=== PATIENT | male | born 1975 | race Caucasian/White ===

== ENCOUNTER 2016-11-06 16:02 | Emergency (ER) | payer OTHER ==
[~2016-11-06] VITALS: Ht 182.9 cm; Wt 99.8 kg
[~2016-11-06 16:02] MED LIST: ATIVAN0.5 M1 PO; LIORESAL 10MG T10 MG PO; MEDROL4 M2 PO; MOTRIN 600 MG600 MG PO; TRAMADOL50 MG PO
[2016-11-06 16:27] LABS: ABSOLUTE BASOPHIL COUNT 0 /CUMM (0.0-0.2); ABSOLUTE EOSINOPHIL COUNT 0.1 /CUMM (0.0-0.7); ABSOLUTE LYMPH COUNT 1.8 /CUMM (1.2-3.4); ABSOLUTE MONOCYTE COUNT 0.6 /CUMM (0.10-0.60); BASOPHIL % 0.5 % (0.0-2.0); EOSINOPHIL % 1.2 % (0-5); GRANULOCYTE % 66.2 % (42.2-75.2); HEMATOCRIT 45.8 % (42-52); MEAN CORPUSCULAR HGB CONC 32.5 G/DL (33.0-37.0); MEAN CORPUSCULAR VOLUME 92.4 FL (80.0-94.0); MEAN PLATELET VOLUME 9.7 FL (7.4-10.4); PLATELET COUNT 235 /CUMM (130-400); RBC DISTRIBUTION WIDTH 12.7 % (11.5-14.5); RED BLOOD CELL CT 4.96 /CUMM (4.70-6.10); WHITE BLOOD CELL COUNT 7.5 /CUMM (4.8-10.8)
--- NOTE | 2016-11-06 19:37 | ED GI/GU/ABDOMINAL COMPLAINT ---
History of Present Illness General Chief Complaint: General Adult Stated Complaint: RT RIB PAIN X 1WEEK PT HAS MULTIPLE COMPLAINTS Source: patient Exam Limitations: no limitations Vital Signs & Intake/Output Vital Signs & Intake/Output Vital Signs Date Time Temp Pulse Resp B/P Pulse O2 O2 Flow FiO2 Ox Delivery Rate 11/07 2135 97.8 75 18 155/83 96 11/06 1938 98 Room Air 11/06 1607 98.3 99 16 148/85 98 Room Air Allergies Coded Allergies: NO KNOWN ALLERGIES (01/23/15) Triage Note: PT STATES HE IS HAVING PAIN IN HIS ABD STATES HE HAS IBS AND DIVERTICULITIS. PT STATES HE HAS A COUGH AND HAS A SWOLLEN GLAND IN HIS RIGHT NECK. PT STATES HE CALLED HIS DRAshley AND THEY TOLD HIM HE NEEDED A CT SCAN TO CHECK HIS LIVER. Triage Nurses Notes Reviewed? yes Onset: Abrupt Duration: week(s): (2), constant, continues in ED Timing: recent history Quality/Severity: moderate, sharpness, severe Location: right upper quadrant (/right rib) Radiation: no radiation (/were) Activities at Onset: none No Modifying Factors: none HPI: 41-year-old male that had a coloscopy done 2 weeks ago and was diagnosed with diverticulosis as well as IBS comes in [place] 0 complaints of right upper abdominal/right sided rib pain. Patient reports that the pain has been there for the last couple weeks. Patient reports he is a little bit of associated cough. He denies any shortness of breath. He reports that he feels like the pain is underneath his right rib cage. Denies any vomiting changes in bowel movement. Patient had initially been seeing the stna for left lower abdominal pain. Denies any urinary symptoms. Denies any chest pain. (BRIDGETT YEN) Past History Travel History Traveled to [place] past 21 day No Medical History Any Pertinent Medical History? see below for history Neurological: NONE EENT: NONE Cardiovascular: NONE Respiratory: NONE Gastrointestinal: DIVERTICULOSIS Hepatic: NONE Renal: NONE Musculoskeletal: NONE Psychiatric: NONE Endocrine: NONE Surgical History Surgical History: non-contributory Psychosocial History What is your primary language Greek Tobacco Use: Never used ETOH Use: occasional use Illicit Drug Use: denies illicit drug use Family History Hx Contributory? No (BRIDGETT YEN) Review of Systems Review of Systems Constitutional: Reports: no symptoms. EENTM: Reports: no symptoms. Respiratory: Reports: see HPI. Cardiovascular: Reports: no symptoms. GI: Reports: see HPI. Genitourinary: Reports: no symptoms. Musculoskeletal: Reports: see HPI. Skin: Reports: no symptoms. Neurological/Psychological: Reports: no symptoms. Hematologic/Endocrine: Reports: no symptoms. Immunologic/Allergic: Reports: no symptoms. All Other Systems: Reviewed and Negative (BRIDGETT YEN) Physical Exam Physical Exam General Appearance: well developed/nourished, no apparent distress, alert Head: atraumatic, normal appearance Eyes: Bilateral: normal appearance, EOMI. Ears, Nose, Throat, Mouth: hearing grossly normal, moist mucous membrane Neck: normal inspection, full range of motion Respiratory: normal breath sounds, no respiratory distress Cardiovascular: regular rate/rhythm Gastrointestinal: normal bowel sounds, soft, non-tender Back: normal inspection Extremities: normal range of motion Neurologic/Psych: awake, alert, oriented x 3, normal gait, normal mood/affect Skin: intact, normal color Core Measures ACS in differential dx? No Severe Sepsis Present: No Septic Shock Present: No (BRIDGETT YEN) Progress Differential Diagnosis: AMI, biliary colic, bowel obstruction, cholecystitis, diverticulitis, gastritis, hepatitis, pancreatitis, PUD/GERD, perforated viscous , pyelonephritis, ureterolithiasis, UTI/pyelo, PE, pneumonia Plan of Care: Orders Procedure Date/time Status Add-on Test (ER Only) 11/06 1914 Active URINALYSIS 11/06 191 Complete LIPASE 11/06 161 Complete AMYLASE 11/06 161 Complete COMPREHENSIVE METABOLIC PANEL 11/06 1608 Complete CBC WITHOUT DIFFERENTIAL 11/06 1608 Complete Laboratory Tests 11/06/16 2100: Urine Color YEL, Urine Clarity CLEAR, Urine pH 6.0, Ur Specific [place] 1.025, Urine Protein NEG, Urine Ketones TRACE H, Urine Nitrite NEG, Urine Bilirubin NEG, Urine Urobilinogen 0.2, Ur Leukocyte Esterase NEG, Ur Microscopic EXAM NOT REQUIRED, Urine Hemoglobin NEG, Urine Glucose NEG 11/06/16 1613: Anion Gap 12, Estimated GFR > 60, BUN/Creatinine Ratio 17.8, Glucose 96, Calcium 10.0, Total Bilirubin 0.9, AST 25, ALT 51, Alkaline Phosphatase 58, Total Protein 7.9, Albumin 4.6, Globulin 3.3, Albumin/Globulin Ratio 1.4, Amylase 35, Lipase 82, CBC w Diff NO MAN DIFF REQ, RBC 4.96, MCV 92.4, MCH 30.0, RDW 12.7, MPV 9.7, Gran % 66.2, Lymphocytes % 24.0, Monocytes % 8.1, Eosinophils % 1.2, Basophils % 0.5, Absolute Granulocytes 5.0, Absolute Lymphocytes 1.8, Absolute Monocytes 0.6, Absolute Eosinophils 0.1, Absolute Basophils 0, PUBS MCHC 32.5 L Diagnostic Imaging: Viewed by Me: Radiology Read, CT Scan. Discussed w/RAD: Radiology Read, CT Scan. Radiology Impression: SERVICE DATE: 11/06/16 EXAM TYPE: RAD - XRY-RIBS UNILATERAL-RIGHT EXAMINATION: XR RIBS, RIGHT CLINICAL INFORMATION: 41-year-old man with pain. COMPARISON: None TECHNIQUE: Frontal view of the chest along with 3 dedicated views of the right ribs were obtained. FINDINGS: Lungs are clear. No consolidation, pneumothorax, or pleural effusion. The cardiomediastinal silhouette and pulmonary vasculature are normal. Osseous structures are unremarkable. Ribs are intact. No fractures are identified. IMPRESSION: No evidence of acute cardiothoracic injury or a displaced right sided rib fracture. DICTATED BY: BIANCA EDEN MD DATE/TIME DICTATED:11/06/162017 CRESTER: IAN DATE/TIME TRANSCRIBED:11/06/162017, SERVICE DATE: 11/06/16 EXAM TYPE: CAT - CT ABD & PELVIS W/O IV CONTRAS EXAMINATION: CT ABDOMEN AND PELVIS WITHOUT CONTRAST CLINICAL INFORMATION: 41-year-old man with right upper quadrant pain. COMPARISON: None TECHNIQUE: Multidetector volumetric imaging was performed from the superior aspect of the liver through the pubic symphysis. Sagittal and coronal reformatted images were obtained on the technologist's workstation. DLP: 446 mGy-cm FINDINGS: The lung bases are clear. The liver, spleen, pancreas, adrenals, kidneys, and gallbladder are normal in their noncontrast appearance. Nondilated loops of large and small bowel are also unremarkable. The appendix and terminal ileum are not inflamed. The prostate, seminal vesicles, and bladder are normal in appearance. IMPRESSION: No acute intra-abdominal process is seen to explain the patient's symptoms. DICTATED BY: BIANCA EDEN MD DATE/TIME DICTATED:11/06/161956 CRESTER:IAN DATE/TIME TRANSCRIBED:11/06/161956 Initial ED EKG: none Comments: 11/06/2016 11:11:02 PM Patient clinically looks well. Nontoxic appearing. Pain seems to be more consistent with abdominal versus rib/lung pain. At this time there is no suspicion for pulmonary embolism. Patient has no left anterior chest pain. There is no concern for any type of atypical cardiac presentation at this time. Overall workup has been benign. Patient instructed to follow up with his primary care doctor to go overall results of today's visit with him as well as his stna. Patient reevaluated multiple times at bedside and continued to remain in no apparent distress. Patient understands and agrees with plan of care. case discussed with dr dominguez. (BRIDGETT YEN) Departure Departure Disposition: HOME OR SELF CARE Condition: Stable Clinical Impression Primary Impression: Abdominal pain Referrals: AVI TOBAR DO (PCP/Family) Additional Instructions: Follow-up with your primary care doctor. Follow-up with her gastrologist. Return to emergency room if any concerns worsening symptoms. Go over results of today's visit with your primary care doctor. Departure Forms: Customer Survey General Discharge Information (BRIDGETT YEN) PA/GEM SETTER Co-Sign Statement Statement: ED Attending supervision documentation- [] I saw and evaluated the patient. I have also reviewed all the pertinent lab results and diagnostic results. I agree with the findings and the plan of care as documented in the PA's/GEM SETTER's documentation. [X] I have reviewed the ED Record and agree with the PA's/GEM SETTER's documentation. [] Additions or exceptions (if any) to the PAs/GEM SETTER's note and plan are summarized below: [] (DARIUSZ SMITH,JANNY Delgado)
--- NOTE | 2016-11-06 20:03 | CT SCAN REPORT ---
EXAMINATION: CT ABDOMEN AND PELVIS WITHOUT CONTRAST CLINICAL INFORMATION: 41-year-old man with right upper quadrant pain. COMPARISON: None TECHNIQUE: Multidetector volumetric imaging was performed from the superior aspect of the liver through the pubic symphysis. Sagittal and coronal reformatted images were obtained on the technologist's workstation. DLP: 446 mGy-cm FINDINGS: The lung bases are clear. The liver, spleen, pancreas, adrenals, kidneys, and gallbladder are normal in their noncontrast appearance. Nondilated loops of large and small bowel are also unremarkable. The appendix and terminal ileum are not inflamed. The prostate, seminal vesicles, and bladder are normal in appearance. IMPRESSION: No acute intra-abdominal process is seen to explain the patient's symptoms.
--- NOTE | 2016-11-06 20:23 | RADIOLOGY REPORT ---
EXAMINATION: XR RIBS, RIGHT CLINICAL INFORMATION: 41-year-old man with pain. COMPARISON: None TECHNIQUE: Frontal view of the chest along with 3 dedicated views of the right ribs were obtained. FINDINGS: Lungs are clear. No consolidation, pneumothorax, or pleural effusion. The cardiomediastinal silhouette and pulmonary vasculature are normal. Osseous structures are unremarkable. Ribs are intact. No fractures are identified. IMPRESSION: No evidence of acute cardiothoracic injury or a displaced right sided rib fracture.
[2016-11-06 21:36] VITALS: BP 155/83
== END 2016-11-06 21:50 ==
LOC: ERH 16:02
PROVIDERS: Emergency Medicine
DX: R10.11 Right upper quadrant pain (principal)
CPT/HCPCS: 71100-RT; 74176; 81003

== ENCOUNTER 2017-10-19 19:57 | Emergency (ER) | payer OTHER ==
[~2017-10-19] VITALS: Ht 193 cm; Wt 104.3 kg
[~2017-10-19 19:57] MED LIST changes: +MOBIC15 M1 PO
--- NOTE | 2017-10-19 20:21 | ED CARDIAC/CP/PALPITATIONS ---
History of Present Illness General Chief Complaint: Chest Pain Stated Complaint: CHEST PAIN, SOB, FEVER Source: patient Exam Limitations: no limitations Vital Signs & Intake/Output Vital Signs & Intake/Output Vital Signs Date Time Temp Pulse Resp B/P B/P Pulse O2 O2 Flow FiO2 Mean Ox Delivery Rate 10/20 0138 97 Room Air 10/20 0123 96.3 77 18 135/59 95 Room Air 10/19 2208 98.2 73 20 135/63 97 Room Air 10/20 2003 98.0 97 20 156/89 98 Room Air ED Intake and Output 10/20 0000 10/19 1200 Intake Total Output Total Balance Patient 230 lb Weight Allergies Coded Allergies: NO KNOWN ALLERGIES (01/23/15) Reconcile Medications Meloxicam (Mobic) 15 MG TABLET 1 TAB PO DAILY PRN PAIN/INFLAMMATION Triage Note: PT FROM URGENT CARE. PT WENT THERE FOR C/O CHEST SORENESS. 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 PT REPORTS PAIN WITH DEEP INSIPRATION. PT STATES HE HAD AN EKG THAT WAS NORMAL. PT REPORTS DIZZINESS WITH THIS SORENESS. Triage Nurses Notes Reviewed? yes Onset: Abrupt Duration: intermittent Timing: recent history Location: substernal Radiation: no radiation HPI: Patient is a 42-year-old male with an unremarkable past medical history presents emergency room with concerns of a 7-8 day history of intermittent chest wall pain where he states that the police and and palpation of this substernal left chest region has made his symptoms worse. Patient was evaluated in urgent care facility 3 days ago received EKG and chest x-ray with unremarkable findings. Patient states that today symptoms are worse and describes shortness of breath and when he lied down in a supine position he stated that the chest pain worsens. Patient still complains of debilitation and palpation of pain localized to his left anterior chest wall Denies any fever or chills arm pain and jaw pain nausea vomiting leg swelling or hemoptysis diaphoresis. Denies any smoking or illicit drug or alcohol use noted that in June 2017 patient did present to the emergency room with similar complaints where I evaluated patient and safely he was discharged. Patient did not follow-up with a primary care doctor. (Zulema HENSON,) Past History Travel History Traveled to [place] past 21 day No Medical History Any Pertinent Medical History? see below for history Neurological: NONE EENT: NONE Cardiovascular: NONE Respiratory: NONE Gastrointestinal: DIVERTICULOSIS Hepatic: NONE Renal: NONE Musculoskeletal: CHEST WALL PAIN Psychiatric: NONE Endocrine: NONE Blood Disorders: NONE Cancer(s): NONE Surgical History Surgical History: non-contributory Psychosocial History What is your primary language Dominican Tobacco Use: Never used ETOH Use: occasional use Illicit Drug Use: denies illicit drug use Family History Hx Contributory? No (James Aldana) Review of Systems Review of Systems Constitutional: Reports: no symptoms. EENTM: Reports: no symptoms. Respiratory: Reports: see HPI. Cardiovascular: Reports: see HPI. GI: Reports: no symptoms. Genitourinary: Reports: no symptoms. Musculoskeletal: Reports: no symptoms. Skin: Reports: no symptoms. Neurological/Psychological: Reports: no symptoms. Hematologic/Endocrine: Reports: no symptoms. Immunologic/Allergic: Reports: no symptoms. All Other Systems: Reviewed and Negative (James Aldana) Physical Exam Physical Exam General Appearance: no apparent distress, alert, comfortable Head: atraumatic Eyes: Bilateral: normal appearance. Ears, Nose, Throat: normal pharynx, normal ENT inspection, hearing grossly normal Neck: normal inspection Respiratory: normal breath sounds Cardiovascular: regular rate/rhythm Peripheral Pulses: 2+ radial (R) Gastrointestinal: normal bowel sounds, soft, non-tender Back: normal inspection Neurologic/Psych: no motor/sensory deficits, awake, alert, oriented x 3, normal gait, normal mood/affect Skin: intact, normal color, warm/dry Core Measures ACS in differential dx? Yes CVA/TIA Diagnosis No Sepsis Present: No Sepsis Focused Exam Completed? No (James Aldana) Progress Differential Diagnosis: AMI, aortic dissection, atrial fibrillation, cholecystitis, CHF/pulm edema, costochondritis, hyperkalemia, hypovolemia, hyperthyroid, hyperventilation, intracranial hemorrhage, musculoskeletal pain, myocarditis, pancreatitis, pericarditis, pneumonia, pneumothorax, PSVT, pulmonary embolism, PUD/GERD, PVCs/PACs, respiratory failure, rib fracture, sepsis, unstable angina, V-fib/V-Tach, WPW syndrome Plan of Care: Orders Procedure Date/time Status TROPONIN LEVEL 10/205 Complete EKG 10/20 44 Active Telemetry/Developer Programmer 10/19 2038 Active TROPONIN LEVEL 10/19 2038 Complete D-DIMER 10/19 2038 Complete COMPREHENSIVE METABOLIC PANEL 10/19 2038 Complete CBC WITHOUT DIFFERENTIAL 10/19 2038 Complete EKG 10/20 2007 Active Laboratory Tests 10/20/17 0043: Troponin I < 0.01 10/19/17 2100: Anion Gap 14, Estimated GFR > 60, BUN/Creatinine Ratio 20.9, Glucose 102 H, Calcium 9.3, Total Bilirubin 0.3, AST 21, ALT 42, Alkaline Phosphatase 50, Troponin I < 0.01, Total Protein 7.1, Albumin 4.1, Globulin 3.0, Albumin/ Globulin Ratio 1.4, D-Dimer High Sensitivty < 200, CBC w Diff NO MAN DIFF REQ, RBC 4.95, MCV 93.2, MCH 30.1, MCHC 32.3 L, RDW 12.6, MPV 9.2, Gran % 67.5, Lymphocytes % 22.5, Monocytes % 8.3, Eosinophils % 1.3, Basophils % 0.4, Absolute Granulocytes 4.5, Absolute Lymphocytes 1.5, Absolute Monocytes 0.6, Absolute Eosinophils 0.1, Absolute Basophils 0 Patient's and his EKG was unremarkable threat monitoring analyst placed The plan will be to PROCEED WITH second set of troponin/EKG after 4 hours Patient's initial troponin was unremarkable d-dimer negative Discussed handoff with Dr. Selby with second set troponin and EKG are pending Diagnostic Imaging: Viewed by Me: Radiology Read. CXR Impression: no acute abnormality, no infiltrates Initial ED EKG: normal p-waves, normal QRS complex, normal sinus rhythm, 72 BPM, NSR Hand-Off Endorsed To: Silvestre Selby MD Endorsed Time: 50 Pending: EKG, labs Comments: PATIENT: STEVO GRAY PRESENT AGE: 42 PATIENT ACCOUNT NO: [id number] : 75 LOCATION: [facility] ORDERING PHYSICIAN: James HENSON SERVICE DATE: 10/19/17 EXAM TYPE: RAD - XRY-CHEST XRAY, TWO VIEWS EXAMINATION: XR CHEST CLINICAL INFORMATION: Chest pain COMPARISON: 07/01/2017 TECHNIQUE: 2 views of the chest were obtained. FINDINGS: The cardiomediastinal silhouette and pulmonary vascularity are normal. No focal pulmonary consolidation. No pleural effusion. No pneumothorax. The visualized bones are unremarkable. IMPRESSION: No acute pulmonary findings. 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 Stevo has been experiencing a chest discomfort over the past week or so. He describes it as an aching pain that gets worse with deep inspiration and palpation. He was evaluated twice in a walk-in clinic, the second time he was referred to the emergency department for reevaluation. He has no apparent cardiac risk factors at this time. His chest pain presentation is atypical and very likely reflects a chest wall pain such as costochondritis. He does have a rather physical job. He was prescribed ibuprofen after a previous walk-in clinic visit but has taken this only sporadically. Although there appears to be no indication at this time of acute GA unstable angina or pericarditis, I have referred Stevo to Dr. Deluca for more complete evaluation of his cardiac status including investigation of the possibility of valve disease such as mitral valve prolapse. (Sola SMITH,Silvestre Bruenr) Departure Departure Disposition: HOME OR SELF CARE Condition: Stable Clinical Impression Primary Impression: Chest pain Referrals: Sandrine SMITH PHD,Arya Godinez DO (PCP/Family) Departure Forms: Customer Survey General Discharge Information (James Aldana) Departure Additional Instructions: Contact Dr. Deluca, produce laborer, tomorrow and arrange for follow-up appointment during the week. Try to cut back on your physical activity to allow your chest wall to rest. Take the ibuprofen as previously prescribed around the clock. Return if any concerns or sudden worsening. Thank you for choosing the [facility] Emergency Department for your care. It was a pleasure to serve you today. Silvestre Selby M.D. [facility] (Sola SMITH,Silvestre Bruner) Critical Care Note Critical Care Note Critical Care Time: non-applicable (Zulema HENSON,)
[2017-10-19 21:05] LABS: ABSOLUTE BASOPHIL COUNT 0 /CUMM (0.0-0.2); ABSOLUTE EOSINOPHIL COUNT 0.1 /CUMM (0.0-0.7); ABSOLUTE GRANULOCYTE CT 4.5 /CUMM (1.4-6.5); ABSOLUTE LYMPH COUNT 1.5 /CUMM (1.2-3.4); ABSOLUTE MONOCYTE COUNT 0.6 /CUMM (0.10-0.60); BASOPHIL % 0.4 % (0.0-2.0); EOSINOPHIL % 1.3 % (0-5); GRANULOCYTE % 67.5 % (42.2-75.2); HEMATOCRIT 46.2 % (42-52); MEAN CORPUSCULAR HGB 30.1 PG (27.0-31.0); MEAN CORPUSCULAR HGB CONC 32.3 G/DL (33.0-37.0); MEAN CORPUSCULAR VOLUME 93.2 FL (80.0-94.0); MEAN PLATELET VOLUME 9.2 FL (7.4-10.4); PLATELET COUNT 247 /CUMM (130-400); RBC DISTRIBUTION WIDTH 12.6 % (11.5-14.5); RED BLOOD CELL CT 4.95 /CUMM (4.70-6.10); WHITE BLOOD CELL COUNT 6.6 /CUMM (4.8-10.8)
--- NOTE | 2017-10-19 22:59 | RADIOLOGY REPORT ---
EXAMINATION: XR CHEST CLINICAL INFORMATION: Chest pain COMPARISON: 07/01/2017 TECHNIQUE: 2 views of the chest were obtained. FINDINGS: The cardiomediastinal silhouette and pulmonary vascularity are normal. No focal pulmonary consolidation. No pleural effusion. No pneumothorax. The visualized bones are unremarkable. IMPRESSION: No acute pulmonary findings.
[2017-10-20 01:23] VITALS: BP 135/59
== END 2017-10-20 01:57 ==
LOC: ERH 19:57
PROVIDERS: Physician Assistant
DX: R07.9 Chest pain, unspecified (principal)
CPT/HCPCS: 71046; 93005; 93010

== ENCOUNTER 2017-10-28 18:10 | Emergency (ER) | payer OTHER ==
[~2017-10-28] VITALS: Ht 182.9 cm; Wt 104.3 kg
--- NOTE | 2017-10-28 18:40 | CT SCAN REPORT ---
EXAMINATION: CT HEAD WITHOUT CONTRAST CLINICAL INFORMATION: 42-year-old male patient with right-sided headache behind the eye associated with blurry vision. COMPARISON: CT the brain done 01/30/2016. (Negative). TECHNIQUE: Contiguous axial imaging was performed from the skull base to vertex without intravenous administration of contrast. DLP: 615 mGy-cm FINDINGS: There is no evidence of acute intracranial hemorrhage or territorial infarction. No abnormal mass effect or midline shift is seen. Leung to white matter differentiation is well preserved. No extra-axial fluid collections are identified. The ventricles are normal in size. There is no abnormal attenuation within the brain parenchyma. The osseous structures and soft tissues are normal. Mastoid air cells are normal. There are signs of bilateral maxillary sinusitis and right-sided ethmoid sinusitis. The frontal sinus air cells are clear. There is mild callosal thickening of the left sphenoid sinus air cell. IMPRESSION: No acute intracranial pathology. Evidence of paranasal sinus disease.
--- NOTE | 2017-10-28 20:03 | ED HEADACHE COMPLAINT ---
History of Present Illness General Chief Complaint: Dizziness Stated Complaint: HEAD PAIN AND DIZZINESS X 3DAYS Source: patient Exam Limitations: no limitations Vital Signs & Intake/Output Vital Signs & Intake/Output Vital Signs Date Time Temp Pulse Resp B/P B/P Pulse O2 O2 Flow FiO2 Mean Ox Delivery Rate 10/28 2004 82 20 143/70 98 Room Air 10/28 1814 97.7 84 18 148/89 100 Room Air Allergies Coded Allergies: NO KNOWN ALLERGIES (01/23/15) Reconcile Medications Meloxicam (Mobic) 15 MG TABLET 1 TAB PO DAILY PRN PAIN/INFLAMMATION Triage Note: PT COMPLAINS OF R SIDE FOREHEAD PAIN CONSTANT 3 DAYS AND INTERMITTANT BLURRED VISION, DENIES N/V/D, DENIES CP/SOB. PT HAS NOT TAKEN ANYTHING FOR THE PAIN. PT HAS CHRONIC BLURRED VISION THATHE IS BEING WORKED UP CARDIAC RIGHT NOW. PT VERY ANXIOUS AT TRIAGE Triage Nurses Notes Reviewed? yes HPI: Patient presents for evaluation of a right-sided headache that began about 3 days ago, gradual in onset. Patient is describing an intermittent pressure like sensation just over the right eye. In addition he states he's had blurred vision off and on for many years but feels that it's not quite blurred vision is just that he needs to shake his head to sort of clear his vision from time to time. He was evaluated in the emergency department for similar symptoms minus the headache roughly 1 week ago. He has followed up with a frozen food selector and had a stress test done today. He has yet to see his primary care physician in follow-up since his last emergency department visit. Outside of the above the patient is also complaining of some mild nasal congestion but otherwise denies chest pain or shortness of breath. Family history is pertinent for aneurysms in both his grandmother and aunt the patient states that he himself has never been evaluated for this. Uses occasional alcohol but denies any drug use or tobacco smoking. Past History Travel History Traveled to [place] past 21 day No Medical History Any Pertinent Medical History? see below for history Neurological: NONE EENT: NONE Cardiovascular: NONE Respiratory: NONE Gastrointestinal: DIVERTICULOSIS Hepatic: NONE Renal: NONE Musculoskeletal: CHEST WALL PAIN Psychiatric: NONE Endocrine: NONE Blood Disorders: NONE Cancer(s): NONE Surgical History Surgical History: non-contributory Psychosocial History What is your primary language Occitan Tobacco Use: Never used ETOH Use: denies use Illicit Drug Use: denies illicit drug use Family History Hx Contributory? No Review of Systems Review of Systems Constitutional: Reports: no symptoms. Eyes: Reports: no symptoms. Ears, Nose, Throat, Mouth: Reports: no symptoms. Respiratory: Reports: no symptoms. Cardiovascular: Reports: no symptoms. Gastrointestinal/Abdominal: Reports: no symptoms. Genitourinary: Reports: no symptoms. Musculoskeletal: Reports: no symptoms. Skin: Reports: no symptoms. Neurological/Psychological: Reports: see HPI. Hematologic/Endocrine: Reports: no symptoms. Endocrine: Reports: no symptoms. Immunologic/Allergic: Reports: no symptoms. All Other Systems: Reviewed and Negative Physical Exam Physical Exam Cranial Nerves: SEE BELOW Comments: Gen.: Well-nourished, well-developed, no acute respiratory distress. Head: Normocephalic, atraumatic. Face: Nontender to percussion Eyes: Normal inspection bilaterally, PERRLA, EOMI Ears: Normal inspection bilaterally Nose: Normal inspection Throat/mouth : Moist mucosa Neck: Supple, full range of motion, no goiter, equal carotid pulses, no carotid bruits Heart: Regular rate and rhythm, no murmurs rubs or gallops Lungs: Clear to auscultation bilaterally with normal air entry Chest: Nontender Back: Normal range of motion Abdomen: Soft, nontender, nondistended, normal bowel sounds Extremities: Normal range of motion grossly, equal radial pulses, no cyanosis clubbing or edema Neurologic: Cranial nerves grossly intact, speech is clear Skin: warm and dry Psychiatric: Calm, cooperative, no apparent delusions or hallucinations Core Measures Sepsis Present: No Sepsis Focused Exam Completed? No Progress Differential Diagnosis: IC mass/tumor, intracranial Hem., musculoskeletal pain, sinusitis, tension AMAYA, temporal arteritis, TMJ syndrome, viral cephalgia, Aneurysm Plan of Care: Orders Procedure Date/time Status PROTHROMBIN TIME 10/28 2022 Complete BASIC METABOLIC PANEL 10/28 2022 Complete Laboratory Tests 10/28/172034: PT 12.8 H, INR 1.17 10/28/172020: BUN Cancelled, Creatinine Cancelled, BUN/Creatinine Ratio Cancelled 10/28/172019: Anion Gap 15, Estimated GFR > 60, BUN/Creatinine Ratio 18.9, Glucose 99, Calcium 9.6 Diagnostic Imaging: Discussed w/RAD: CT Scan. Radiology Impression: PATIENT: STEVO GRAY PRESENT AGE: 42 PATIENT ACCOUNT NO: [id number] : 75 LOCATION: [facility] ORDERING PHYSICIAN: Jimmy HENSON SERVICE DATE: 10/28/17 EXAM TYPE: CAT - CT HEAD WO IV CONTRAST EXAMINATION: CT HEAD WITHOUT CONTRAST CLINICAL INFORMATION: 42-year-old male patient with right-sided headache behind the eye associated with blurry vision. COMPARISON: CT the brain done 01/30/2016. ( Negative). TECHNIQUE: Contiguous axial imaging was performed from the skull base to vertex without intravenous administration of contrast. DLP: 615 mGy-cm FINDINGS: There is no evidence of acute intracranial hemorrhage or territorial infarction. No abnormal mass effect or midline shift is seen. Leung to white matter differentiation is well preserved. No extra-axial fluid collections are identified. The ventricles are normal in size. There is no abnormal attenuation within the brain parenchyma. The osseous structures and soft tissues are normal. Mastoid air cells are normal. There are signs of bilateral maxillary sinusitis and right-sided ethmoid sinusitis. The frontal sinus air cells are clear. There is mild callosal thickening of the left sphenoid sinus air cell. IMPRESSION: No acute intracranial pathology. Evidence of paranasal sinus disease. DICTATED BY: Meek Celis MD DATE/TIME DICTATED:10/28/171833 WIREWORKER SUPERVISOR: IAN DATE/TIME TRANSCRIBED:10/28/171833 CONFIDENTIAL, DO NOT COPY WITHOUT APPROPRIATE AUTHORIZATION. <Electronically signed in Other Vendor System> SIGNED BY: Meek Celis MD 10/28/17 1840, PATIENT: STEVO GRAY PRESENT AGE: 42 PATIENT ACCOUNT NO: [id number] : 75 LOCATION: [facility] ORDERING PHYSICIAN: Silvestre Selby MD SERVICE DATE: 10/28/17 EXAM TYPE: CAT - CT HEAD ANGIOGRAM EXAMINATION: CT ANGIOGRAM HEAD CLINICAL INFORMATION: Right frontal headache. Family history of aneurysm in grandmother. COMPARISON: Head CT performed earlier the same day. TECHNIQUE: Test bolus sequences followed by intravenous administration 95 mL of Optiray 320 intravenous contrast. Helical imaging was performed in the axial plane from the mediastinum to the skull vertex. Delayed postcontrast imaging of the head was also performed. The data was processed at the reliability technologist's workstation for generation of MIP sequences. Three-dimensional volume rendered reformatted images were also generated at an offline 3-D workstation. Stenoses are graded per criteria similar to NASCET. FINDINGS: The anterior and posterior intracranial arterial circulations There is no pathologic intracranial enhancement. There is no intracranial hemorrhage, hydrocephalus, extra-axial surface collection, midline shift, or other herniation pattern. Leung to white matter differentiation is diffusely maintained without evidence of an evolved acute territorial infarct. The basilar cisterns are preserved. No significant soft tissue abnormality. No acute osseous abnormality. There is mild mucosal thickening within the right maxillary sinus and within the left sphenoid sinus. Mild mucosal thickening throughout the ethmoid air cells bilaterally and within the right frontal sinus. Leftward deviation of the nasal septum with a leftward directed nasal septal spur. IMPRESSION: - No acute intracranial findings. No aneurysms. - Mild sinus mucosal disease. DICTATED BY: Silvestre Clark MD DATE/ TIME DICTATED:10/28/172143 WIREWORKER SUPERVISOR:IAN DATE/TIME TRANSCRIBED: 10/28/172143 CONFIDENTIAL, DO NOT COPY WITHOUT APPROPRIATE AUTHORIZATION. < Electronically signed in Other Vendor System> SIGNED BY: Silvestre Clark MD 10/28/172157 Comments: 10/28/2017 10:20:41 PM I have updated Stevo on his test results including the possibility of chronic sinusitis (he states that he has been exposed to mold and mouse droppings recently). I have recommended that he follow-up with an ear nose and throat doctor if he has any persistent sinus symptoms. Regarding his headache, I do not believe the findings and the sinuses account for his pain. I 've asked that he follow up with his primary care physician to continue the investigation further. Departure Departure Disposition: HOME OR SELF CARE Condition: Stable Clinical Impression Primary Impression: Headache Qualifiers: Headache type: unspecified Headache chronicity pattern: acute headache Intractability: not intractable Qualified Code: R51 - Headache Secondary Impressions: Chronic sinusitis Qualifiers: Sinusitis location: ethmoidal Qualified Code: J32.2 - Chronic ethmoidal sinusitis Referrals: Arya Stanton DO (PCP/Family) Additional Instructions: Ibuprofen 600 mg every 6 hours as needed for your headache pain. Follow-up with your primary care physician for reevaluation this week. Return if any concerns or sudden worsening. Please note that there might be incidental findings in your evaluation that are unrelated to the current emergency department visit. Please notify your primary care doctor about this emergency department visit in order to obtain and review all of the testing performed so that these incidental findings can be monitored as needed. If you had an x-ray performed, please understand that some fractures may not be seen on the initial set of x-rays. If your symptoms persist you might need a repeat set of x-rays to check for such a fracture. If you had a laceration evaluated, please understand that foreign bodies such as glass or wood may not be visible to the naked eye or on plain x-rays. If the wound becomes red, swollen, increasingly more painful or if there is any drainage from the wound, please have it reevaluated by a physician for the possibility of a retained foreign body. If you're unable to follow up as outlined in the discharge instructions please return to the emergency department. Thank you for choosing the [facility] Emergency Department for your care. It was a pleasure to serve you today. Silvestre Selby M.D. [facility] Departure Forms: Customer Survey General Discharge Information
[2017-10-28 21:00] LABS: PT 12.8 SEC (9.4-12.5)
--- NOTE | 2017-10-28 21:58 | CT SCAN REPORT ---
EXAMINATION: CT ANGIOGRAM HEAD CLINICAL INFORMATION: Right frontal headache. Family history of aneurysm in grandmother. COMPARISON: Head CT performed earlier the same day. TECHNIQUE: Test bolus sequences followed by intravenous administration 95 mL of Optiray 320 intravenous contrast. Helical imaging was performed in the axial plane from the mediastinum to the skull vertex. Delayed postcontrast imaging of the head was also performed. The data was processed at the special procedure technologist's workstation for generation of MIP sequences. Three-dimensional volume rendered reformatted images were also generated at an offline 3-D workstation. Stenoses are graded per criteria similar to NASCET. FINDINGS: The anterior and posterior intracranial arterial circulations There is no pathologic intracranial enhancement. There is no intracranial hemorrhage, hydrocephalus, extra-axial surface collection, midline shift, or other herniation pattern. Leung to white matter differentiation is diffusely maintained without evidence of an evolved acute territorial infarct. The basilar cisterns are preserved. No significant soft tissue abnormality. No acute osseous abnormality. There is mild mucosal thickening within the right maxillary sinus and within the left sphenoid sinus. Mild mucosal thickening throughout the ethmoid air cells bilaterally and within the right frontal sinus. Leftward deviation of the nasal septum with a leftward directed nasal septal spur. IMPRESSION: - No acute intracranial findings. No aneurysms. - Mild sinus mucosal disease.
[2017-10-28 22:27] VITALS: BP 140/77
== END 2017-10-28 22:28 ==
LOC: ERH 18:10
PROVIDERS: Emergency Medicine
DX: R51 Headache (principal); J32.9 Chronic sinusitis, unspecified